=== PATIENT | male | born 1950 | race Caucasian/White ===

== ENCOUNTER → 2018-10-30 | Outpatient (CLI) | payer MEDICARE, OTHER ==
[~2018-10-30] MED LIST: Aspir 8181 MG PO; Caffeine200 MG PO; DIPH50 PO; METH40 PO; OXYC5 PO
== END | disposition home or self-care (01) ==
LOC: LAB SHORT 14:30 → LAB 14:30
DX: L02.91 Cutaneous abscess, unspecified (principal)
CPT/HCPCS: 87070; 87075; 87205

== ENCOUNTER → 2018-11-02 | Outpatient (CLI) | payer MEDICARE | END | disposition home or self-care (01) | LOC: LAB 17:38 → LAB SHORT 17:38 | DX: L02.91 Cutaneous abscess, unspecified (principal) | CPT/HCPCS: 87070; 87075; 87205 ==

== ENCOUNTER → 2018-11-02 | Outpatient (CLI) | payer MEDICARE, OTHER | END | disposition home or self-care (01) | LOC: LAB SHORT 08:04 → PLD 08:04 | DX: L02.91 Cutaneous abscess, unspecified (principal) | CPT/HCPCS: 88305; 88312 ==

== ENCOUNTER → 2018-11-08 | Outpatient (CLI) | payer MEDICARE, OTHER | END | disposition home or self-care (01) | LOC: LAB 15:30 → LAB SHORT 15:30 | DX: L02.91 Cutaneous abscess, unspecified (principal) | CPT/HCPCS: 87070; 87075; 87205 ==